=== PATIENT | female | born 1960 | race Caucasian/White ===

== ENCOUNTER 2022-04-25 16:25 | Emergency (ER) | payer SELFPAY ==
[~2022-04-25] VITALS: Ht 165.1 cm; Wt 86.2 kg
--- NOTE | 2022-04-25 16:30 | NUR ---
BIBA to bed 09. PAULA Barber is evaluating patient at bedside
[2022-04-25 16:35] VITALS: BP 131/72
[2022-04-25] MEDS ORDERED: IBUPROFEN 600 MG TAB PO ONE (16:35)
--- NOTE | 2022-04-25 16:45 | NUR ---
61/F [place] FROM LOC[facility] [employer]. PER EMS PATIENT TRIPPED OFF A PIECE OF CLOTHING ON THE GROUND AND FELL FORWARD ONTO HER RIGHT KNEE. PATIENT DENIES LOC, HEAD/NECK INJURY. PATIENT REPORTS 04/08 UPON ARRIVAL TO ED, RIGHT KNEE APPEARS SWOLLEN, TENDER TO TOUCH. PMH: DENIES NKA
--- NOTE | 2022-04-25 16:52 | NUR ---
EMT at bedside for splint application
[2022-04-25] MEDS ORDERED: IBUP-2213 PO (17:40)
[2022-04-25] MEDS ORDERED: ACET-8386 PO (17:40)
--- NOTE | 2022-04-25 18:08 | NUR ---
CALLED DAUGHTER REINALDO TO PROVIDE PATIENT RIDE HOME UPON DC. STATED ETA 20 MIN.
[2022-04-25 18:37] VITALS: BP 131/72
--- NOTE | 2022-04-25 18:37 | NUR ---
Patient discharged with v/s stable. Written and verbal after care instructions ABOUT PATELLAR FRACTURE given and explained. Patient alert, oriented and verbalized understanding of instructions. Wheel Chair Assisted with to car. All questions addressed prior to discharge. ID band removed. Patient advised to follow up with PMD. Rx of IBUPROFEN AND NORCO 5-325 given. Patient educated on indication of medication including possible reaction and side effects. Opportunity to ask questions provided and answered. EDUCATED ABOUT USE OF NARCOTICS ADVISED TO NOT DRINK/DRIVE WHILE IN USE.
== END 2022-04-25 18:37 | disposition home or self-care (01) ==
LOC: MED 16:25
DX: S82.001A Unspecified fracture of right patella, initial encounter for closed fracture (principal); W18.30XA Fall on same level, unspecified, initial encounter; Y93.89 Activity, other specified; Y92.89 Other specified places as the place of occurrence of the external cause; Y99.8 Other external cause status
CPT/HCPCS: 29505; 73562; 99283; Q0092